=== PATIENT | male | born 1990 | race Hispanic/Latino ===

== ENCOUNTER 2018-10-20 23:52 | Emergency (ER) | payer MEDICAID, OTHER ==
[2018-10-21] MEDS ORDERED: CLINDAMYCIN HCL 150 MG CAP ONE (00:19)
[2018-10-21] MEDS ORDERED: IBUPROFEN 600 MG TABLET ONE (00:19)
== END 2018-10-21 00:47 | disposition home or self-care (01) ==
LOC: EDH 23:52
DX: L02.31 Cutaneous abscess of buttock (principal); L03.317 Cellulitis of buttock; K64.4 Residual hemorrhoidal skin tags; J45.909 Unspecified asthma, uncomplicated

== ENCOUNTER 2020-03-14 12:20 | Emergency (ER) | payer OTHER ==
[2020-03-14] MEDS ORDERED: KETOROLAC TROMETHAMINE 30MG/ML ONE (12:59)
== END 2020-03-14 14:24 | disposition home or self-care (01) ==
LOC: EDH 12:20
DX: S90.01XA Contusion of right ankle, initial encounter (principal); J45.909 Unspecified asthma, uncomplicated; Z72.0 Tobacco use; X58.XXXA Exposure to other specified factors, initial encounter; Y93.89 Activity, other specified; Y92.89 Other specified places as the place of occurrence of the external cause; Y99.8 Other external cause status
CPT/HCPCS: 36415; 73610; 84550; 96372; 99284; J1885

== ENCOUNTER 2020-11-03 08:14 | Emergency (ER) | payer OTHER, SELFPAY ==
[~2020-11-03] VITALS: Ht 170.2 cm; Wt 56.2 kg
[2020-11-03 08:15] VITALS: BP 138/82
== END 2020-11-03 09:34 | disposition home or self-care (01) ==
LOC: EDH 08:14
DX: J02.9 Acute pharyngitis, unspecified (principal); J45.909 Unspecified asthma, uncomplicated; Z20.822 Contact with and (suspected) exposure to COVID-19
CPT/HCPCS: 87635; 87804 ×2; 93005; 99284; C9803

== ENCOUNTER 2021-01-29 17:51 | Emergency (ER) | payer OTHER ==
[~2021-01-29] VITALS: Ht 167.6 cm; Wt 74.8 kg
[2021-01-29] MEDS ORDERED: PENICILLIN G BENZATHINE LA 1.2 MILUNITS/2 ML SYG IM ONE (18:30)
[2021-01-29] MEDS ORDERED: GENTAMICIN SULFATE 0.3% 5ML DROPS OU SCH (18:30)
[2021-01-29 18:55] LABS: APPEARANCE,URINE Clear (CLEAR); BILIRUBIN,URINE Negative (NEGATIVE); COLOR,URINE Yellow (YELLOW); GLUCOSE, URINE (UA) Negative (NEGATIVE); KETONES,URINE Negative (NEGATIVE); LEUKOCYTE ESTERASE ,URINE Negative (NEGATIVE); NITRATE,URINE Negative (NEGATIVE); OCCULT BLOOD,URINE Negative (NEGATIVE); PH,URINE 5.5 (5.0-8.0); PROTEIN,URINE Negative (NEGATIVE); UROBILINOGEN,URINE 0.2 mg/dL (0.2-1.0)
[2021-01-29 20:09] LABS: RAPID PLASMA REAGIN REACTIVE (NONREACTIVE); RAPID PLASMA REAGIN TITER REACTIVE 1:16 (NONREACTIVE)
[2021-01-29 20:29] VITALS: BP 140/89
[2021-01-31 08:15] LABS: HEPATITIS A ANTIBODY IGM Negative (Negative); HEPATITIS B CORE IGM Negative (Negative); HEPATITIS Bs ANTIGEN SCREEN P Negative (Negative)
== END 2021-01-29 20:40 | disposition home or self-care (01) ==
LOC: EDH 17:51
DX: A53.9 Syphilis, unspecified (principal); H10.9 Unspecified conjunctivitis; J45.909 Unspecified asthma, uncomplicated; Z86.16 Personal history of COVID-19
CPT/HCPCS: 36415; 80074; 81003; 86592; 86701; 86780; 87390; 87486; 87797; 96372; 99283; J0561

== ENCOUNTER 2021-07-24 09:36 | Emergency (ER) | payer OTHER, SELFPAY ==
[~2021-07-24] VITALS: Ht 167.6 cm; Wt 79.4 kg
[2021-07-24 09:41] VITALS: BP 147/84
[2021-07-24] MEDS ORDERED: CLIN-141 PO (10:08)
[2021-07-24] MEDS ORDERED: TETANUS/DIPHTHERIA TOXOID [ADULT] 0.5 ML VIAL IM ONE (10:11)
== END 2021-07-24 10:39 | disposition home or self-care (01) ==
LOC: EDH 09:36
DX: L02.212 Cutaneous abscess of back [any part, except buttock and flank] (principal); J45.909 Unspecified asthma, uncomplicated
CPT/HCPCS: 90471; 90714